=== PATIENT | female | born 1960 | race Caucasian/White ===

== ENCOUNTER 2016-11-18 06:06 | Day surgery (SDC) | payer BC ==
[2016-11-18] MEDS ORDERED: LIDOCAINE 1% 2 ML INJ ONE (06:34)
[2016-11-18] MEDS ORDERED: LR 1,000 ML IV ONE (06:42)
--- NOTE | 2016-11-18 07:08 | PDANEPAE ---
ANE History of Present Illness here for egd/eus ANE Past Medical History - Cardiovascular History Hx Hypertension: No Hx Arrhythmias: No Hx Chest Pain: No Hx Coronary Artery / Peripheral Vascular Disease: No Hx CHF / Valvular Disease: No Hx Palpitations: No - Pulmonary History Hx COPD: No Hx Asthma/Reactive Airway Disease: No Hx Recent Upper Respiratory Infection: No Hx Oxygen in Use at Home: No Hx Sleep Apnea: No Sleep Apnea Screening Result - Last Documented: Negative - Neurologic History Hx Cerebrovascular Accident: No Hx Seizures: No Hx Dementia: No - Endocrine History Hx Diabetes: No Obesity: no - Renal History Hx Renal Disorders: No - Liver History Hx Hepatic Disorders: No - Neurological & Psychiatric Hx Hx Neurological and Psychiatric Disorders: No - Cancer History Hx Cancer: Yes Cancer History Comment: BREAST CANCER -LUMPECTOMY L - Congenital Disorder History Hx Congenital Disorders: No - GI History GERD: mild GERD Comment: controlled on medication Hx Gastrointestinal Disorders: Yes Gastrointestinal History Comment: GERD - Other Health History Other Health History: NEG - Chronic Pain History Chronic Pain: No - Surgical History Prior Surgeries: ANKLE X2. BUNIONECTOMY. APPEDECTOMY. HERNIA. SMALL FINGER SURG ANE Review of Systems Review of systems is: negative - Exercise capacity Exercise capacity: >=4 METS METS (RN): 5 METS ANE Patient History - Allergies Allergies/Adverse Reactions: No Known Allergies Allergy (Unverified 11/17/16 16:58) - Home Medications Home medications: home medication list seen and reviewed Home Medications: Acyclovir 11/17/16 [Last Taken Unknown] Herbals/Supplements -Info Only 11/17/16 [Last Taken Unknown] Ranitidine HCl 11/17/16 [Last Taken Unknown] Xanax 11/17/16 [Last Taken Unknown] - NPO status NPO Status: no food or drink >8 hours NPO Since - Liquids (Date): 11/17/16 NPO Since - Liquids (Time): 21:00 NPO Since - Solids (Date): 11/17/16 NPO Since - Solids (Time): 19:00 - Anes Hx Anes Hx: no prior problems - Smoking Hx Smoking Status: Former smoker - Family Anes Hx Family Hx Anesthesia Complications: NEG ANE Labs/Vital Signs - Vital Signs Blood Pressure: 100/69 Heart Rate: 62 Respiratory Rate: 16 O2 Sat (%): 94 Height: 154.94 cm Weight: 52.163 kg ANE Physical Exam - Airway Neck exam: FROM Mallampati Score: Class 1 Mouth exam: normal dental/mouth exam - Pulmonary Pulmonary: no respiratory distress - Cardiovascular Cardiovascular: regular rate and rhythym - ASA Status ASA Status: II ANE Anesthesia Plan Anesthesia Plan: GA with mask
[2016-11-18] MEDS ORDERED: PROPOFOL/EMULSION 500 MG/50 ML BOTTLE IV ONE (07:12)
--- NOTE | 2016-11-18 07:17 | PDGENHP ---
History & Physical Chief Complaint: Esophageal nodule History of Present Illness: Abnormal EGD Relevant Physical Exam: GEN: NAD. Cardiac: RRR. Lungs: CTA B. Abd: Soft, nt, nd
[2016-11-18] MEDS ORDERED: PROPOFOL 200 MG/20 ML VIAL ONE ×2 (07:40→07:46)
[2016-11-18] MEDS ORDERED: NALOXONE HCL 0.4 MG/ML INJ IVP PRN (08:09)
[2016-11-18] MEDS ORDERED: ONDANSETRON 4 MG/2 ML VIAL IVP PRN (08:09)
[2016-11-18] MEDS ORDERED: fentaNYL 100 MCG/2 ML INJ IVP PRN (08:09)
--- NOTE | 2016-11-18 08:10 | POSTANESTH ---
Post Anesthetic Evaluation Cardiovascular Status: Normal, Stable Respiratory Status: Normal, Stable Level of Consciousness/Mental Status: Can Participate in Eval, Mildly Sleepy, Arousable Pain Control: Adequate, Prn Tx Ordered Nausea/Vomiting Control: Adequate, Prn Tx Ordered
[2016-11-18 08:11] VITALS: PULSE 81; TEMP 97.5
--- NOTE | 2016-11-18 08:15 | POSTOPPROG ---
Post Op Note Date of Operation: 11/18/16 Surgeon: Kenji Asencio Pre-op Diagnosis: Esophageal nodule Post-op Diagnosis: Esophageal blood vessel Indication: Esophageal nodule Procedure: EUS Findings: Esophageal blood vessel Inf/Abcess present in the surg proc area at time of surgery?: No
[2016-11-18 08:19] VITALS: RESP 16
[2016-11-18 09:12] VITALS: BP 112/77; O2SAT 95
--- NOTE | 2016-11-18 09:38 | GPN ---
[f rep st] PROCEDURE NOTE PREPROCEDURE DIAGNOSIS: Esophageal nodule. POSTPROCEDURE DIAGNOSIS: Esophageal superficial blood vessel. PROCEDURE: Endoscopic ultrasound including the esophagus, stomach, and duodenum. MEDICATIONS: Monitored anesthesia care. INDICATIONS: The patient is a 55-year-old female with history of dysphagia and heartburn who recent ly underwent upper endoscopy with Dr. Ahumada and found a small submucosal nodule in the mid esophagu s. She is here today for endoscopic ultrasound for further evaluation. The risks and benefits of t he procedure were discussed with the patient. Consent obtained. Risks include but are not limited to bleeding, perforation as well as sedation. The patient is ASA class 2. DESCRIPTION OF PROCEDURE: The upper endoscope was inserted into the esophagus, into the stomach, in to the second portion of the duodenum. The mid esophagus showed a 4 mm nodule that had a purplish t int appearance and appeared to be associated with a blood vessel extending distally. The GE junctio n was irregular, which was previously biopsied. The stomach showed mild antral gastritis which was previously biopsied. The duodenum and second portion were normal. Next, the curvilinear echo endos cope was inserted into the esophagus, into stomach and second portion of the duodenum. The pancreat ic body and tail appeared normal from within the stomach. The pancreatic head appeared normal. The extrahepatic bile duct was normal. There was no lymphadenopathy noted surrounding the esophagus. There appeared to be superficial blood flow in the location of the esophageal nodule consistent with a blood vessel. IMPRESSION: 1. Prominent esophageal blood vessel. 2. Irregular Z-line, previously biopsied. 3. Antral gastritis, previously biopsied. RECOMMENDATIONS: 1. Discharge home with escort. 2. Advance diet as tolerated. 3. Follow up with Gastroenterology as needed. 4. Thank you for allowing me to participate in the care of your patient. Please do not hesitate to call with questions. /[id number]/MODL
== END 2016-11-18 09:05 | disposition home or self-care (01) ==
LOC: FSGY 06:06
PROVIDERS: ATTEND Internal Medicine Gastroenterology
PROC: 0DJ08ZZ Inspection of Upper Intestinal Tract, Via Natural or Artificial Opening Endoscopic (ICD-10-PCS; principal; 2016-11-18 07:30)
DX: K22.9 Disease of esophagus, unspecified (principal)
CPT/HCPCS: J2704